=== PATIENT | female | born 1940 | race Caucasian/White ===

== ENCOUNTER 2019-04-26 09:10 | Emergency (ER) | payer OTHER ==
[2019-04-26 09:35] VITALS: TEMP 98.2; BMI 26.4
--- NOTE | 2019-04-26 10:01 | PDOC ---
History of Present Illness - General Chief Complaint: Blood Pressure Problem Stated Complaint: HIGH BLOOD PRESSURE Time Seen by Provider: 04/26/19 09:33 - History of Present Illness Initial Comments: 04/26/19 10:05 cc: high bp hpi: feeling "nervous" this AM. Checked bp was high 180/100. last checked dr brunner 04/18, mildly elevated at that time but no chg in rx recommended. no sxs at present ros. denies cp, sob, abd pain, nausea, diaphoresis, visual or focal neuro, dizziness, lightheaded. Remaining sys revieved and neg pmh: denies mi, cva, tia, pvd, DM. admits hbp many years. sh; admits anxiety nervousness, , lonely though son is nearby, financial stress fh: neg inc early cad, DM PE: A&O, NAD. appears mildly anxious VSS except for bp 180-190/100. fundi benign heent clear neck no bruits mass nodes lungs clear cv reg no m, rub, gallop. pulses full/sym. no jvd/edema abd soft, n/t neuro c2-12 intact. str full/sym. no focal sens/motor deficits. gait stable/ unimpaired ext no c/c/e skin no rash adequate turgor imp: elevated bp, probably at least partially anxiety related, predatory animal exterminator control uncertain but no fundal changes suggesting residential uncontrol. assymptomatic now, no sign acute neuro/cardiac plan; additional medication for several days only pendung f/u pmd. return er if sxs. Past History - Past Medical History Allergies/Adverse Reactions: Allergies Allergy/AdvReac Type Severity Reaction Status Date / Time codeine Allergy Mild Nausea Verified 04/26/19 09:22 Home Medications: Ambulatory Orders Cholecalciferol (Vitamin D3) [Vitamin D3] 2,000 unit PO DAILY 04/26/19 Cyanocobalamin (Vitamin B-12) [Vitamin B-12] 1,000 mcg PO DAILY 04/26/19 Indomethacin [Indocin -] 50 mg PO BID PRN 04/26/19 Labetalol HCl [Normodyne -] 100 mg PO DAILY #7 tablet 04/26/19 Losartan Potassium [Cozaar -] 50 mg PO DAILY 04/26/19 [place]-3 Fatty Acids [[place]-3] 1,000 mg PO DAILY 04/26/19 Omeprazole 20 mg PO DAILY PRN 04/26/19 COPD: No GI Disorders: Yes (GERD) HTN: Yes Other medical history: GOUT - Suicide/Smoking/Psychosocial Hx Smoking History: Never smoked Drug/Substance Use Hx: No *Physical Exam - Vital Signs Last Vital Signs Temp Pulse Resp BP Pulse Ox 98.2 F 77 16 183/90 H 99 04/26/19 09:22 04/26/19 09:50 04/26/19 09:50 04/26/19 09:50 04/26/19 09:50 *DC/Admit/Observation/Transfer Diagnosis at time of Disposition: HBP (high blood pressure) Qualifiers: Hypertension type: essential hypertension Qualified Code(s): I10 - Essential ( primary) hypertension - Discharge Dispostion Disposition: HOME Condition at time of disposition: Improved Decision to Admit order: No - Prescriptions Prescriptions: Labetalol HCl [Normodyne -] 100 mg PO DAILY #7 tablet - Referrals Referrals: Sujata Brunner MD [Primary Care Provider] - 2 Days - Patient Instructions Printed Discharge Instructions: DI for High Blood Pressure - Post Discharge Activity
[2019-04-26] MEDS ORDERED: LABETALOL HCL 100 MG TABLET (FP) PO ONE (10:02)
[2019-04-26] MEDS ORDERED: LABETALOL HCL 200 MG TABLET (FP) ONE (10:04)
[2019-04-26 10:30] VITALS: BP 153/69; PULSE 76
== END 2019-04-26 10:37 | disposition home or self-care (01) ==
LOC: FER 09:10
DX: I10 Essential (primary) hypertension (principal); M10.9 Gout, unspecified; K21.9 Gastro-esophageal reflux disease without esophagitis
CPT/HCPCS: 99281-25

== ENCOUNTER 2021-06-05 05:01 | Day surgery (SDC) | payer OTHER ==
[2021-06-03 16:11] VITALS: BMI 29.0
[2021-06-05 13:55] VITALS: TEMP 97.5
[2021-06-05 15:31] VITALS: BP 138/70; PULSE 92
== END 2021-06-05 15:10 | disposition home or self-care (01) ==
LOC: JASU-ENDO 05:01
PROVIDERS: ATTEND Internal Medicine Gastroenterology
PROC: 0DBP8ZX Excision of Rectum, Via Natural or Artificial Opening Endoscopic, Diagnostic (ICD-10-PCS; 2021-06-05)
PROC: 0DBL8ZX Excision of Transverse Colon, Via Natural or Artificial Opening Endoscopic, Diagnostic (ICD-10-PCS; principal; 2021-06-05 13:30)
DX: Z12.11 Encounter for screening for malignant neoplasm of colon (principal); K50.90 Crohn's disease, unspecified, without complications; K57.30 Diverticulosis of large intestine without perforation or abscess without bleeding; D12.3 Benign neoplasm of transverse colon; K62.1 Rectal polyp
CPT/HCPCS: 88305-TC

== ENCOUNTER → 2021-08-26 | Day surgery (SDC) | payer OTHER | END | disposition home or self-care (01) | LOC: FRADUS-SUR 13:39 | PROVIDERS: ATTEND Family Medicine | PROC: 0HBT3ZX Excision of Right Breast, Percutaneous Approach, Diagnostic (ICD-10-PCS; principal; 2021-08-26) | DX: C50.211 Malignant neoplasm of upper-inner quadrant of right female breast (principal); N64.89 Other specified disorders of breast; N63.12 Unspecified lump in the right breast, upper inner quadrant | CPT/HCPCS: 19083; 77065-TC; 87899; 88305-TC; 88342-TC; A4648 ==